=== PATIENT | female | born 1970 | race Caucasian/White ===

== ENCOUNTER 2021-07-19 06:39 | Day surgery (SDC) | payer OTHER ==
[~2021-07-19] VITALS: Ht 160 cm; Wt 113.4 kg
[2021-07-19] MEDS ORDERED: diphenhydrAMINE 50 MG/ML VIAL ONE (07:39)
[2021-07-19] MEDS ORDERED: MIDAZOLAM 5 MG/5 ML VIAL ONE (07:39)
[2021-07-19] MEDS ORDERED: fentaNYL citrate 0.05 MG/ML VIAL ONE (07:39)
[2021-07-19] MEDS ORDERED: SIMETHICONE 40 MG/0.6 ML ONE (07:40)
[2021-07-19] MEDS ORDERED: MIDAZOLAM 2 MG/2 ML VIAL IVP ONE (13:00)
[2021-07-19] MEDS ORDERED: fentaNYL citrate 0.05 MG/ML VIAL IVP ONE (13:00)
== END 2021-07-19 09:13 | disposition home or self-care (01) ==
LOC: MOR 06:39 → MMU 06:47 → MOR 09:13
PROVIDERS: ATTEND Internal Medicine Gastroenterology
DX: Z12.11 Encounter for screening for malignant neoplasm of colon (principal); K63.5 Polyp of colon; K57.30 Diverticulosis of large intestine without perforation or abscess without bleeding; K64.4 Residual hemorrhoidal skin tags; K59.00 Constipation, unspecified; Z86.010 Personal history of colon polyps; I10 Essential (primary) hypertension; E11.9 Type 2 diabetes mellitus without complications; Z79.84 Long term (current) use of oral hypoglycemic drugs; Z79.899 Other long term (current) drug therapy
CPT/HCPCS: 45385; J2250; J3010; J1200